=== PATIENT | female | born 1990 | race Caucasian/White ===

== ENCOUNTER 2022-03-30 04:21 | Inpatient (IN) | payer MEDICAID ==
[~2022-03-30] VITALS: Ht 152.4 cm; Wt 65.7 kg
[2022-03-30 07:26] LABS: BASOPHILS % (AUTO) 0.1 % (0-1); EOSINOPHILS % (AUTO) 0 % (0-6); HEMATOCRIT 34.4 % (35.0-45.0); HEMOGLOBIN 11.3 g/dl (12.0-16.0); LYMPHOCYTES # (AUTO) 1.4 X10'3 (1.1-4.8); LYMPHOCYTES % (AUTO) 11.9 % (21-51); MEAN CORPUSCULAR HGB CONC 32.9 g/dL (33.0-36.5); MEAN PLATELET VOLUME 7.2 FL (7.4-10.4); MONOCYTES # (AUTO) 0.5 X10'3 (0-0.9); MONOCYTES % (AUTO) 4.4 % (2-12); NEUTROPHILS # (AUTO) 9.6 X10'3 (1.8-7.7); NEUTROPHILS % (AUTO) 83.6 % (42-75); PLATELET COUNT 300 X10'3 (140-440); RED BLOOD COUNT 3.66 X10'6 (4.20-5.60); RED CELL DISTRIBUTION WIDTH 14.7 % (11.5-14.5); WHITE BLOOD COUNT 11.5 X10'3 (4.5-11.0)
[2022-03-30 07:32] LABS: ALANINE AMINOTRANSFERASE 45 U/L (12-78); ALBUMIN 3.8 G/DL (3.4-5.0); ALKALINE PHOSPHATASE 74 IU/L (46-116); ANION GAP 10 (8-16); ASPARTATE AMINO TRANSFERASE 24 U/L (10-37); BILIRUBIN,TOTAL 0.4 MG/DL (0.1-1.0); BLOOD UREA NITROGEN 13 MG/DL (7-18); BUN/CREATININE RATIO 20.3 (6.6-38.0); CALCIUM 8.8 MG/DL (8.5-10.1); CHLORIDE 100 MMOL/L (99-107); CREATININE 0.64 MG/DL (0.40-0.90); GLUCOSE 107 MG/DL (70-104); LIPASE 101 U/L (73-393); POTASSIUM 3.6 MMOL/L (3.5-5.1); SODIUM 132 MMOL/L (135-145); TOTAL CARBON DIOXIDE 21.7 MMOL/L (24-32); TOTAL PROTEIN 7.6 G/DL (6.4-8.2); eGFR > 90 ML/MIN
[2022-03-30] MEDS ORDERED: ondansetron/PF 4mg/2ml inj IV ONE (08:30)
[2022-03-30] MEDS ORDERED: normal saline 1000ML IV soln IVB ONE (08:30)
[2022-03-30] MEDS ORDERED: morphine 4 MG/ML inj SYRINge IV PRN ×2 (08:30→13:25)
--- NOTE | 2022-03-30 09:08 | NUR ---
PT GUARDIANS PREFER TO HOLD IV MORPHINE AT THIS TIME, DUE TO PT NOT APPEARING TO BE IN PAIN AT THIS MOMENT.
[2022-03-30 10:05] LABS: CLARITY,URINE CLEAR (Clear); COLOR,URINE YELLOW (Yellow); GLUCOSE, URINE NEGATIVE (Neg); KETONES,URINE NEGATIVE (Neg); LEUKOCYTE ESTERASE ,URINE NEGATIVE (Neg); NITRITES, URINE NEGATIVE (Neg); OCCULT BLOOD,URINE MODERATE (Neg); PROTEIN,URINE NEGATIVE (Neg); UROBILINOGEN,URINE 0.2 E.U/dL (0.2-1.0)
[2022-03-30 10:09] LABS: UA COLLECTION TYPE CLN CATCH MIDSTREAM
[2022-03-30 10:11] LABS: SQUAMOUS EPITHELIAL CELL,UR FEW /LPF (FEW)
[2022-03-30 10:12] LABS: BACTERIA,URINE FEW /HPF (Neg); WBC,URINE NONE SEEN /HPF (0-4)
[2022-03-30 10:24] LABS: URINE HCG NEGATIVE (NEG)
[2022-03-30] MEDS ORDERED: CefTRIAXone 2gm/D5W 50ml BAG 50 ML IV ONE (12:20)
[2022-03-30] MEDS ORDERED: HYDROcodone/acetaminophen 5mg/325mg tablet PO PRN (12:30)
[2022-03-30] MEDS ORDERED: magnesium Cl slow-release 64mg tablet PO PRN (12:30)
[2022-03-30] MEDS ORDERED: HYDROmorphone/PF 0.2 MG/ML SYRINGE IV PRN (12:30)
[2022-03-30] MEDS ORDERED: metoclopramide 5 mg/ml inj IV PRN (12:30)
[2022-03-30] MEDS ORDERED: magnesium 4gm in 100ml NS 100 ML IV PRN (12:30)
[2022-03-30] MEDS ORDERED: HYDROcodone/acetaminophen 10/325mg tab PO PRN (12:30)
[2022-03-30] MEDS ORDERED: mag hydrox/Alum hydrox/simeth 30ml oral suspension PO PRN (12:30)
[2022-03-30] MEDS ORDERED: ondansetron 4mg rapidly disintigrating tab PO PRN (12:30)
[2022-03-30] MEDS ORDERED: potassium Cl 20 mEq SR tablet PO PRN ×2 (12:30)
[2022-03-30] MEDS ORDERED: potassium Cl 40MEQ/1/2NS 520ml 520 ML IV PRN (12:30)
[2022-03-30] MEDS ORDERED: magnesium hydroxide 30ml (MOM) UD suspension PO PRN ×2 (12:30→17:40)
[2022-03-30] MEDS ORDERED: acetaminophen 325mg tablet PO PRN (12:30)
[2022-03-30] MEDS ORDERED: acetaminophen 650mg rectal suppository RC PRN (12:30)
[2022-03-30] MEDS ORDERED: HYDROmorphone inj. 0.5 MG/0.5 ML DISP.SYRIN IV PRN (12:30)
[2022-03-30] MEDS ORDERED: diatr meglu/diatrizoate 30ml oral sol.-(3 dose) bottle PO SCH ×2 (13:00)
[2022-03-30] MEDS ORDERED: CALC-157 PO (13:03)
[2022-03-30] MEDS ORDERED: POLY17PO59 PO (13:03)
[2022-03-30] MEDS ORDERED: LEVE500T PO (13:03)
[2022-03-30] MEDS ORDERED: OXCA150T14 PO (13:03)
[2022-03-30] MEDS ORDERED: CHOL400T PO (13:03)
[2022-03-30] MEDS ORDERED: OXCA600T9 PO (13:03)
[2022-03-30 13:11] LABS: MAGNESIUM 2.2 MG/DL (1.5-2.4)
[2022-03-30] MEDS: diatr meglu/diatrizoate 30ml oral sol.-(3 dose) bottle PO SCH ×3 (13:11→14:55)
[2022-03-30] MEDS ORDERED: BUPIVAcaine/PF 2.5 mg/ml (0.25%) 30ml vial ONE ×2 (13:18→14:59)
[2022-03-30] MEDS: normal saline 1000ml 1,000 ML IV SCH (13:19)
[2022-03-30] MEDS ORDERED: ketorolac trometh. 30mg/ml inj. IV ONE (13:25)
[2022-03-30] MEDS ORDERED: proCHLORperazine 10 MG/2 ml inj IV PRN (13:25)
[2022-03-30] MEDS ORDERED: ondansetron/PF 4mg/2ml inj IV PRN (13:25)
[2022-03-30] MEDS ORDERED: acetaminophen 1,000mg/100ml IV 100 ML IV PRN (13:25)
[2022-03-30] MEDS ORDERED: morphine 2 MG/ML inj. syringe IV PRN (13:25)
[2022-03-30] MEDS ORDERED: labetalol 20mg/4ml (5mg/ml) syringe IV PRN (13:25)
[2022-03-30] MEDS ORDERED: hydrALAZINE 20mg/ml inj. IV PRN (13:25)
[2022-03-30] MEDS ORDERED: meperidine/PF 25mg/ml syringe IV PRN ×2 (13:25)
[2022-03-30] MEDS ORDERED: ringers solution, lacted 1,000 ML IV SCH (13:25)
[2022-03-30] MEDS ORDERED: iohexol 300mg/ml 100ml inj. ONE (14:38)
--- NOTE | 2022-03-30 16:42 | NUR ---
MD BURROUGHS PAGED AT THIS TIME PER MOTHER AND FATHER REQEST TO BE GIVEN CT SCAN RESULTS AND PLAN OF CARE
[2022-03-30] MEDS ORDERED: bisacodyl 5mg tablet.DR PO PRN (17:40)
[2022-03-30] MEDS ORDERED: bisacodyl 10mg suppository rectal RC PRN (17:40)
[2022-03-30] MEDS ORDERED: docusate sod 100mg capsule PO SCH (20:00)
[2022-03-30] MEDS ORDERED: levetiracetam 250mg tablet PO SCH ×2 (20:00→22:15)
[2022-03-30] MEDS ORDERED: oxcarbazepine 150mg tablet PO SCH (21:00)
[2022-03-30] MEDS ORDERED: temazepam 15mg capsule PO PRN (21:00)
--- NOTE | 2022-03-31 00:10 | NUR ---
pt arrived to pcu room 3021. mother at bedside. called RX to verify if medications were given in ED. meds were not scanned and not in EMR but RX RJ states that trileptal and mirilax were removed from ED omnicell. mother verifies that those medications were given and does not want them duplicated. mother also refuses IVF "we will be up and down to the bathroom all night so I don't want that in the way" mother to stay and care for patient.
[2022-03-31] MEDS: K and/or MAG REPLACEMENT MC SCH ×3 (00:30→20:00)
[2022-03-31] MEDS: polyethylene glycol 3350 17gm powd pack PO SCH ×2 (00:44→19:55)
[2022-03-31] MEDS: normal saline 1000ml 1,000 ML IV SCH ×2 (00:44→04:05)
[2022-03-31] MEDS: psyllium seed 3.4 gm packet PO SCH ×2 (00:45→19:57)
[2022-03-31] MEDS: docusate sod 100mg capsule PO SCH ×3 (00:45→19:58)
[2022-03-31 02:45] VITALS: BP 141/79
--- NOTE | 2022-03-31 03:18 | NUR ---
mom noticed pt very sleepy. HR and O2sat dipping to 40's HR and 85%02sat. Applied oxygen 2L NC and continuous pulse ox. O2sat stable at high 90s and HR in high 40s to mid 50s. Mom at bedside monitoring O2 sat will notify RN if symptoms persist or worsen.
--- NOTE | 2022-03-31 03:22 | NUR ---
agree with assess by student Henny
[2022-03-31 06:00] VITALS: BP 141/85
--- NOTE | 2022-03-31 06:21 | NUR ---
Gave report to AMOS Humphreys. noted pt had a bowel movement and pt O2 sat decreases with any narcotics. mother at bedside
[2022-03-31 06:39] LABS: BASOPHILS % (AUTO) 0.4 % (0-1); EOSINOPHILS % (AUTO) 0.1 % (0-6); HEMATOCRIT 29.4 % (35.0-45.0); HEMOGLOBIN 9.9 g/dl (12.0-16.0); LYMPHOCYTES # (AUTO) 2.5 X10'3 (1.1-4.8); LYMPHOCYTES % (AUTO) 24.4 % (21-51); MEAN CORPUSCULAR HEMOGLOBIN 32.2 PG (27.0-31.0); MEAN CORPUSCULAR HGB CONC 33.8 g/dL (33.0-36.5); MEAN CORPUSCULAR VOLUME 95.3 FL (78-98); MEAN PLATELET VOLUME 6.8 FL (7.4-10.4); MONOCYTES # (AUTO) 0.9 X10'3 (0-0.9); MONOCYTES % (AUTO) 8.5 % (2-12); NEUTROPHILS # (AUTO) 6.8 X10'3 (1.8-7.7); NEUTROPHILS % (AUTO) 66.6 % (42-75); PLATELET COUNT 238 X10'3 (140-440); RED BLOOD COUNT 3.09 X10'6 (4.20-5.60); RED CELL DISTRIBUTION WIDTH 14.9 % (11.5-14.5); WHITE BLOOD COUNT 10.3 X10'3 (4.5-11.0)
--- NOTE | 2022-03-31 06:42 | NUR ---
Patient in room PCU 3021. I have received report from Herbie TRINIDAD and had the opportunity to ask questions and assume patient care.Pt sleeping, Mom at bedside. Addendum: 03/31/22 at 0643 by Joelle Austin RN Amended: Links added.
[2022-03-31 07:06] LABS: ANION GAP 9 (8-16); BILIRUBIN,TOTAL 0.4 MG/DL (0.1-1.0); BLOOD UREA NITROGEN 11 MG/DL (7-18); BUN/CREATININE RATIO 14.7 (6.6-38.0); CALCIUM 8.1 MG/DL (8.5-10.1); CHLORIDE 102 MMOL/L (99-107); CREATININE 0.75 MG/DL (0.40-0.90); GLUCOSE 89 MG/DL (70-104); MAGNESIUM 2.3 MG/DL (1.5-2.4); POTASSIUM 3.6 MMOL/L (3.5-5.1); SODIUM 134 MMOL/L (135-145); TOTAL PROTEIN 6.3 G/DL (6.4-8.2); eGFR > 90 ML/MIN
[2022-03-31 07:07] LABS: ALANINE AMINOTRANSFERASE 67 U/L (12-78); ALBUMIN 3.2 G/DL (3.4-5.0); ALKALINE PHOSPHATASE 62 IU/L (46-116); ASPARTATE AMINO TRANSFERASE 43 U/L (10-37)
[2022-03-31] MEDS ORDERED: CefTRIAXone/D5W-Rocephin 1gm 50 ML IV SCH (08:00)
[2022-03-31] MEDS ORDERED: levetiracetam 250mg tablet PO SCH (08:00)
[2022-03-31] MEDS ORDERED: POLYETHYLENE GLYCOL PO SCH (08:00)
--- NOTE | 2022-03-31 08:07 | NUR ---
MESSAGE: 3021 mily. She takes Keppra 1000mg BID. She only has 500mg ordered for the a.m. , Trileptal 450mg in the a.m and 600mg in the p.m. I need an order for keppra 1000mg in the a.m. and trileptal 600 mg in the p.m. [facility]
[2022-03-31] MEDS: levetiracetam 250mg tablet PO SCH ×2 (09:13→21:55)
[2022-03-31] MEDS: oxcarbazepine 150mg tablet PO SCH ×2 (09:14→21:56)
[2022-03-31 11:45] VITALS: BP 144/102
[2022-03-31] MEDS ORDERED: mineral oil 133ml enema RC PRN (13:55)
--- NOTE | 2022-03-31 14:31 | NUR ---
enema given. pt tolerated well. No stool in vault. await results. Dad at bedside. Patient report given, questions answered & plan of care reviewed with Beba TRINIDAD. Will transfer Pt after Pt expels enema solution or is no longer uncomfortable.
--- NOTE | 2022-03-31 14:52 | NUR ---
pt and all belongings moved to room 341. Mom at bedside. Dr Omer updated on Pt lack of stool.
--- NOTE | 2022-03-31 15:03 | NUR ---
Received patient to room 341 accompanied by x2 staff and mother. Patient's mother refuses for 2rn skin assessment and states patient does not have any skin issues. Patient up to bathroom with SBA with mother. Call light within reach, oriented to room and call light.
[2022-03-31 16:00] VITALS: BP 178/104
--- NOTE | 2022-03-31 16:39 | NUR ---
Per patient's mother patient is not allergic to [place] or morphine but "it's too strong" as per report patient's heart rate and spo2% decreased after taking norco and morphine.
--- NOTE | 2022-03-31 16:39 | NUR ---
PAGER ID: [phone] MESSAGE: [phone]- Ninoska Mayer- pt moaning in pain. does have norco and morphine ordered but too strong per mother. any new orders?- jennifer [phone]
--- NOTE | 2022-03-31 16:54 | NUR ---
PAGER ID: [phone] MESSAGE: 341- Ninoska Mayer- pt very uncomfortable and painful. mother is upset. patient needing pain meds but norco and morphine too strong. any new orders?- jennifer [phone]
[2022-03-31] MEDS ORDERED: ibuprofen tablet 400 MG TABLET PO PRN (17:10)
--- NOTE | 2022-03-31 17:17 | NUR ---
Received call back from Dr. Cazares and stated he will place pain med order in and is aware that patient's BP and HR elevated. Patient moaning and groaning. Let mother know will administer medication when order in.
[2022-03-31 17:20] VITALS: BP 171/115
[2022-03-31] MEDS: HYDROcodone/acetaminophen 7.5MG/325MG per 15ml UD CUP PO PRN ×2 (17:44→21:55)
[2022-03-31] MEDS ORDERED: oxcarbazepine 150mg tablet PO SCH ×2 (18:13→21:00)
--- NOTE | 2022-03-31 18:15 | NUR ---
Problems reprioritized. Patient report given, questions answered & plan of care reviewed with AMOS Stoner.
[2022-03-31] MEDS: famotidine 20mg tablet PO SCH (19:59)
[2022-03-31] MEDS: acetaminophen 325mg tablet PO PRN (20:09)
--- NOTE | 2022-03-31 20:12 | NUR ---
paged Dr. Ryan rejhonqesting toradol in addition to the norco. pt continues to be painful and norco not due for another 2 hours. family concerned about pain control.
[2022-03-31] MEDS ORDERED: ketorolac trometh. 30mg/ml inj. IV ONE (20:15)
--- NOTE | 2022-03-31 22:00 | NUR ---
Dr. Ryan ordered soaps suds enema, family agreeable at the time but then pt had increased pain and they refused at this time. Will try again in AM.
--- NOTE | 2022-03-31 22:00 | NUR ---
agree with assessment of Henny, student RN
[2022-03-31 23:05] VITALS: BP 152/98
[2022-04-01] MEDS: HYDROcodone/acetaminophen 7.5MG/325MG per 15ml UD CUP PO PRN ×6 (01:53→20:30)
[2022-04-01] MEDS: normal saline 1000ml 1,000 ML IV SCH ×2 (02:40→09:47)
--- NOTE | 2022-04-01 05:45 | NUR ---
educated mom again on necessity of walking. mom is a horse person - "walk the horse that has cholic" and needs to walk with barber. "But she won't she's in so much pain and makes a lot of noise. I'm afraid for the other patients." encouraged that pt could walk around unit next door while pushing a w/c. then she can sit when needed and keep the heat pack on while sitting. mom verbalized understanding.
[2022-04-01 06:00] VITALS: BP 158/91
--- NOTE | 2022-04-01 06:12 | NUR ---
Report given to RN Bouchra. Noted patient passed mucus but no stool and pain medication given. Noted when patient receives narcotics O2 sat and HR drops. Recommend the patient walk. Patient may benefit from further imaging.
--- NOTE | 2022-04-01 06:20 | NUR ---
Patient in room DELMA 351. I have received report from AMOS Camara and had the opportunity to ask questions and assume patient care.
[2022-04-01 07:01] LABS: BASOPHILS % (AUTO) 0.3 % (0-1); EOSINOPHILS % (AUTO) 0.1 % (0-6); HEMATOCRIT 31.5 % (35.0-45.0); HEMOGLOBIN 10.6 g/dl (12.0-16.0); LYMPHOCYTES # (AUTO) 1.7 X10'3 (1.1-4.8); LYMPHOCYTES % (AUTO) 17.9 % (21-51); MEAN CORPUSCULAR HGB CONC 33.7 g/dL (33.0-36.5); MEAN PLATELET VOLUME 6.7 FL (7.4-10.4); MONOCYTES # (AUTO) 0.6 X10'3 (0-0.9); MONOCYTES % (AUTO) 5.9 % (2-12); NEUTROPHILS # (AUTO) 7.3 X10'3 (1.8-7.7); NEUTROPHILS % (AUTO) 75.8 % (42-75); PLATELET COUNT 258 X10'3 (140-440); RED BLOOD COUNT 3.31 X10'6 (4.20-5.60); RED CELL DISTRIBUTION WIDTH 14.7 % (11.5-14.5); WHITE BLOOD COUNT 9.7 X10'3 (4.5-11.0)
[2022-04-01 07:25] LABS: ALANINE AMINOTRANSFERASE 92 U/L (12-78); ALBUMIN 3.5 G/DL (3.4-5.0); ALKALINE PHOSPHATASE 75 IU/L (46-116); ANION GAP 10 (8-16); ASPARTATE AMINO TRANSFERASE 62 U/L (10-37); BILIRUBIN,TOTAL 0.5 MG/DL (0.1-1.0); BLOOD UREA NITROGEN 8 MG/DL (7-18); BUN/CREATININE RATIO 14.5 (6.6-38.0); CALCIUM 8.1 MG/DL (8.5-10.1); CHLORIDE 97 MMOL/L (99-107); CREATININE 0.55 MG/DL (0.40-0.90); GLUCOSE 123 MG/DL (70-104); MAGNESIUM 2.5 MG/DL (1.5-2.4); POTASSIUM 3.7 MMOL/L (3.5-5.1); SODIUM 128 MMOL/L (135-145); TOTAL CARBON DIOXIDE 20.7 MMOL/L (24-32); eGFR > 90 ML/MIN
[2022-04-01] MEDS: K and/or MAG REPLACEMENT MC SCH ×2 (07:47→20:00)
[2022-04-01] MEDS: famotidine 20mg tablet PO SCH ×2 (08:00→20:31)
[2022-04-01] MEDS ORDERED: lactulose 20gm/30ml cup PO ONE (08:44)
--- NOTE | 2022-04-01 09:15 | NUR ---
Complete physical assessment completed
[2022-04-01] MEDS: acetaminophen 325mg tablet PO PRN (09:22)
[2022-04-01] MEDS: docusate sod 100mg capsule PO SCH ×2 (09:22→20:00)
[2022-04-01] MEDS: levetiracetam 250mg tablet PO SCH ×2 (09:22→20:35)
[2022-04-01] MEDS: oxcarbazepine 150mg tablet PO SCH ×2 (09:23→20:34)
[2022-04-01 10:00] VITALS: BP 144/94
[2022-04-01] MEDS: ondansetron/PF 4mg/2ml inj IV PRN (11:04)
[2022-04-01 18:00] VITALS: BP 149/90
[2022-04-01] MEDS: PEG 3350/Na sulf,bicarb,Cl/KCl oral sol 4 liter bottle PO ONE (18:10)
--- NOTE | 2022-04-01 18:40 | NUR ---
Problems reprioritized. Patient report given, questions answered & plan of care reviewed with AMOS Laws.
--- NOTE | 2022-04-01 19:00 | NUR ---
Father in room at this time and wanting to check on time of pain meds. All medication times and doses gone over with father. He and his had discussed holding off on the GOYLTELY until tomorrow. It was explained that it can just be sipped on she does not have to drink all of it at once. He and concerned pt had vomited today, and right now she is finally comfortable. Education on the importance of walking and keeping adequate fluid intake. Pt sitting in recliner at this time appearing comfortable with eyes closed, no grimacing or moaning.
[2022-04-01] MEDS: polyethylene glycol 3350 17gm powd pack PO SCH (21:00)
--- NOTE | 2022-04-01 21:00 | NUR ---
Father would like to hold off on Miralax at this time.
[2022-04-01 22:00] VITALS: BP 158/95
[2022-04-02] MEDS: HYDROcodone/acetaminophen 7.5MG/325MG per 15ml UD CUP PO PRN ×4 (00:11→13:31)
--- NOTE | 2022-04-02 01:00 | NUR ---
Father came out of room upset. Stating there's nothing being done, we are just killing his daughter "come sit in here and watch her". When nurse entered room pt was in recliner, sleeping as pain medication was given and pt now appears comfortable. Respirations 18 with occasional nodding of her head to the pillow. The father was allowed to vent his frustrations, while nurse sat in room with him and his sleeping daughter. He did acknowledge how more comfortable she looked as he adjusted the head of her recliner down. Addendum: 04/02/22 at 0208 by Eusebia Holden RN Amended: Links added.
[2022-04-02] MEDS: normal saline 1000ml 1,000 ML IV SCH (02:16)
--- NOTE | 2022-04-02 02:31 | NUR ---
Mother Brooke is now taking over care, as Father Victoriano is going home. Mother still is not wanting daughter to take Golytely. Mother frustrated with plan of care, which was allowed to be expressed.
[2022-04-02] MEDS: PEG 3350/Na sulf,bicarb,Cl/KCl oral sol 4 liter bottle PO ONE (04:38)
--- NOTE | 2022-04-02 04:49 | NUR ---
Talked to Mother about GOLYTEY and that it was suggested by Dr. Dodd as per his progress note. Mother is willing to try it. GOLYTELY mixed and flavoring provided, at mothers discretion.
[2022-04-02 06:00] VITALS: BP 149/108
--- NOTE | 2022-04-02 06:40 | NUR ---
Patient in room DELMA 351. I have received report from AMOS Laws and had the opportunity to ask questions and assume patient care.
[2022-04-02 06:41] LABS: BASOPHILS % (AUTO) 0.3 % (0-1); EOSINOPHILS # (AUTO) 0.1 X10'3 (0-0.9); EOSINOPHILS % (AUTO) 0.6 % (0-6); HEMATOCRIT 32.4 % (35.0-45.0); HEMOGLOBIN 11.1 g/dl (12.0-16.0); LYMPHOCYTES # (AUTO) 2.7 X10'3 (1.1-4.8); LYMPHOCYTES % (AUTO) 28.1 % (21-51); MEAN CORPUSCULAR HEMOGLOBIN 32.7 PG (27.0-31.0); MEAN CORPUSCULAR HGB CONC 34.1 g/dL (33.0-36.5); MEAN CORPUSCULAR VOLUME 95.9 FL (78-98); MEAN PLATELET VOLUME 7.3 FL (7.4-10.4); MONOCYTES # (AUTO) 0.8 X10'3 (0-0.9); MONOCYTES % (AUTO) 8.5 % (2-12); NEUTROPHILS % (AUTO) 62.5 % (42-75); PLATELET COUNT 253 X10'3 (140-440); RED BLOOD COUNT 3.38 X10'6 (4.20-5.60); RED CELL DISTRIBUTION WIDTH 15.1 % (11.5-14.5); WHITE BLOOD COUNT 9.7 X10'3 (4.5-11.0)
--- NOTE | 2022-04-02 06:48 | NUR ---
Problems reprioritized. Patient report given, questions answered & plan of care reviewed with Bouchra TRINIDAD. Addendum: 04/02/22 at 0650 by Eusebia Holden RN Amended: Links added.
[2022-04-02 06:56] LABS: ALANINE AMINOTRANSFERASE 379 U/L (12-78); ALBUMIN 3.4 G/DL (3.4-5.0); ALKALINE PHOSPHATASE 76 IU/L (46-116); ANION GAP 7 (8-16); ASPARTATE AMINO TRANSFERASE 268 U/L (10-37); BILIRUBIN,TOTAL 0.5 MG/DL (0.1-1.0); BLOOD UREA NITROGEN 9 MG/DL (7-18); BUN/CREATININE RATIO 12.9 (6.6-38.0); CALCIUM 7.9 MG/DL (8.5-10.1); CHLORIDE 97 MMOL/L (99-107); GLUCOSE 87 MG/DL (70-104); MAGNESIUM 2.1 MG/DL (1.5-2.4); POTASSIUM 3.8 MMOL/L (3.5-5.1); SODIUM 127 MMOL/L (135-145); TOTAL CARBON DIOXIDE 22.8 MMOL/L (24-32); TOTAL PROTEIN 6.9 G/DL (6.4-8.2); eGFR > 90 ML/MIN
[2022-04-02] MEDS: K and/or MAG REPLACEMENT MC SCH ×2 (07:42→20:00)
[2022-04-02] MEDS: levetiracetam 250mg tablet PO SCH ×2 (09:58→19:54)
[2022-04-02] MEDS: famotidine 20mg tablet PO SCH ×2 (09:58→19:50)
[2022-04-02] MEDS: docusate sod 100mg capsule PO SCH ×2 (09:59→19:53)
[2022-04-02 10:00] VITALS: BP 142/95
[2022-04-02] MEDS: oxcarbazepine 150mg tablet PO SCH ×2 (10:00→19:54)
[2022-04-02] MEDS ORDERED: diatr meglu/diatrizoate 30ml oral sol.-(3 dose) bottle ONE (12:57)
[2022-04-02] MEDS ORDERED: iohexol 300mg/ml 100ml inj. ONE (12:57)
[2022-04-02] MEDS ORDERED: dicyclomine 10mg/ml 2ml ampule IM ONE (15:25)
[2022-04-02] MEDS ORDERED: PERFLUTREN PROTEIN-A MICROSPHR (Optison) 0.22 MG/ML 3ML VIAL IV ONE (15:55)
[2022-04-02] MEDS: oxyCODONE IR 5mg (immed. release) tablet PO PRN ×2 (15:55→19:53)
[2022-04-02] MEDS: furosemide 20 MG/2 ML vial IV SCH (17:28)
[2022-04-02] MEDS: CefTRIAXone/D5W-Rocephin 1gm 50 ML IV SCH (17:31)
[2022-04-02 18:00] VITALS: BP 142/91
[2022-04-02] MEDS: ketorolac trometh. 30mg/ml inj. IV PRN (18:07)
[2022-04-02] MEDS: azithromycin/NS 500mg/250ml 250 ML IV SCH (18:09)
--- NOTE | 2022-04-02 18:30 | NUR ---
Problems reprioritized. Patient report given, questions answered & plan of care reviewed with AMOS Laws.
[2022-04-02] MEDS: metoclopramide 5 mg/ml inj IV SCH (19:50)
[2022-04-03] MEDS: metoclopramide 5 mg/ml inj IV SCH ×4 (02:15→23:04)
[2022-04-03] MEDS: ketorolac trometh. 30mg/ml inj. IV PRN ×3 (02:15→14:21)
--- NOTE | 2022-04-03 03:00 | NUR ---
Pt appearing to be in less discomfort this shift, Father and Mother have expressed the same. Addendum: 04/03/22 at 0317 by Eusebia Holden RN Amended: Links added.
--- NOTE | 2022-04-03 03:09 | NUR ---
Father concerned that pt is getting up to the bathroom more frequently since Reglan and Toradol were given. Pt is frequenting the bathroom more often and voice to the father about pooping. Will continue to encourage questions. Addendum: 04/03/22 at 0317 by Eusebia Holden RN Amended: Links added.
--- NOTE | 2022-04-03 06:00 | NUR ---
VS check refused
--- NOTE | 2022-04-03 06:20 | NUR ---
Patient in room DELMA 351. I have received report from AMOS Laws and had the opportunity to ask questions and assume patient care.
--- NOTE | 2022-04-03 06:20 | NUR ---
Problems reprioritized. Patient report given, questions answered & plan of care reviewed with AMOS Tran.
--- NOTE | 2022-04-03 06:32 | NUR ---
Problems reprioritized. Patient report given, questions answered & plan of care reviewed with Bouchra TRINIDAD. Addendum: 04/03/22 at 0632 by Eusebia Holden RN Amended: Links added.
[2022-04-03] MEDS: oxyCODONE IR 5mg (immed. release) tablet PO PRN (07:50)
[2022-04-03] MEDS: CefTRIAXone/D5W-Rocephin 1gm 50 ML IV SCH (08:00)
[2022-04-03] MEDS: levetiracetam 250mg tablet PO SCH ×3 (08:00→22:47)
[2022-04-03] MEDS: famotidine 20mg tablet PO SCH ×2 (08:00→22:46)
[2022-04-03] MEDS: oxcarbazepine 150mg tablet PO SCH ×3 (08:00→22:48)
[2022-04-03] MEDS: furosemide 20 MG/2 ML vial IV SCH ×2 (08:00→22:49)
[2022-04-03] MEDS: docusate sod 100mg capsule PO SCH ×2 (08:00→20:00)
[2022-04-03 09:23] LABS: BASOPHILS % (AUTO) 0.3 % (0-1); EOSINOPHILS # (AUTO) 0.1 X10'3 (0-0.9); EOSINOPHILS % (AUTO) 1.1 % (0-6); HEMATOCRIT 31.6 % (35.0-45.0); HEMOGLOBIN 10.6 g/dl (12.0-16.0); LYMPHOCYTES # (AUTO) 2.7 X10'3 (1.1-4.8); MEAN CORPUSCULAR HEMOGLOBIN 32.2 PG (27.0-31.0); MEAN CORPUSCULAR HGB CONC 33.5 g/dL (33.0-36.5); MEAN CORPUSCULAR VOLUME 95.9 FL (78-98); MEAN PLATELET VOLUME 7.2 FL (7.4-10.4); MONOCYTES # (AUTO) 0.9 X10'3 (0-0.9); MONOCYTES % (AUTO) 8.2 % (2-12); NEUTROPHILS % (AUTO) 65.4 % (42-75); PLATELET COUNT 244 X10'3 (140-440); RED CELL DISTRIBUTION WIDTH 14.7 % (11.5-14.5); WHITE BLOOD COUNT 10.7 X10'3 (4.5-11.0)
[2022-04-03 09:33] LABS: ALANINE AMINOTRANSFERASE 315 U/L (12-78); ALBUMIN 3.5 G/DL (3.4-5.0); ALBUMIN/GLOBULIN RATIO 1.1 (1.1-1.5); ALKALINE PHOSPHATASE 79 IU/L (46-116); ANION GAP 7 (8-16); ASPARTATE AMINO TRANSFERASE 169 U/L (10-37); BILIRUBIN,TOTAL 0.4 MG/DL (0.1-1.0); BLOOD UREA NITROGEN 8 MG/DL (7-18); BUN/CREATININE RATIO 10.3 (6.6-38.0); CALCIUM 8.1 MG/DL (8.5-10.1); CHLORIDE 100 MMOL/L (99-107); CREATININE 0.78 MG/DL (0.40-0.90); GLUCOSE 83 MG/DL (70-104); MAGNESIUM 2.5 MG/DL (1.5-2.4); POTASSIUM 3.2 MMOL/L (3.5-5.1); SODIUM 136 MMOL/L (135-145); TOTAL CARBON DIOXIDE 29.3 MMOL/L (24-32); TOTAL PROTEIN 6.8 G/DL (6.4-8.2); eGFR 87 ML/MIN
[2022-04-03] MEDS: ondansetron/PF 4mg/2ml inj IV PRN (09:37)
[2022-04-03] MEDS: K and/or MAG REPLACEMENT MC SCH ×2 (09:48→20:00)
[2022-04-03] MEDS: azithromycin/NS 500mg/250ml 250 ML IV SCH (09:48)
[2022-04-03 10:00] VITALS: BP 140/86
[2022-04-03] MEDS ORDERED: magnesium 4gm in 100ml NS 100 ML IV PRN (10:00)
[2022-04-03] MEDS ORDERED: magnesium Cl slow-release 64mg tablet PO PRN (10:00)
[2022-04-03] MEDS ORDERED: potassium Cl 40MEQ/1/2NS 520ml 520 ML IV PRN (10:00)
[2022-04-03] MEDS ORDERED: potassium Cl 20 mEq SR tablet PO PRN (10:00)
[2022-04-03] MEDS ORDERED: magnesium 2GM in 50ml NS 50 ML IV PRN (10:00)
[2022-04-03] MEDS: potassium Cl 20 mEq SR tablet PO PRN ×3 (10:15→23:08)
[2022-04-03] MEDS ORDERED: lisinopril 2.5mg tablet PO SCH (14:00)
[2022-04-03] MEDS ORDERED: furosemide 40mg/4ml inj IV ONE (14:20)
[2022-04-03] MEDS: carVEDilol 3.125mg tablet PO SCH ×2 (14:22→22:46)
[2022-04-03] MEDS: spironolactone 25 MG tablet PO SCH (14:22)
[2022-04-03 18:00] VITALS: BP 129/69
[2022-04-03 18:08] LABS: MAGNESIUM 2.2 MG/DL (1.5-2.4); POTASSIUM 3.4 MMOL/L (3.5-5.1)
[2022-04-03] MEDS ORDERED: LORazepam 2 mg/ml vial IV PRN (18:40)
--- NOTE | 2022-04-03 19:15 | NUR ---
Patient in room DELMA 351. I have received report from QUE TRINIDAD and had the opportunity to ask questions and assume patient care.
[2022-04-03] MEDS ORDERED: furosemide 20 MG/2 ML vial IV SCH (21:00)
[2022-04-03 22:00] VITALS: BP 131/56
[2022-04-03] MEDS: ketorolac tromethamine 15mg/ml inj. IV PRN (22:48)
--- NOTE | 2022-04-03 23:57 | NUR ---
RT WAS HERE TO PLACE BIPAP ON PATIENT AROUND 2229. PATIENT'S DAD ASKED TO WAIT ON IT UNTIL HIS COULD BE HERE ALSO SO WILL WAIT TO INITIATE BIPAP UNTIL TOMORROW NIGHT. SPOKE WITH NILSA LAZO, WHO ALSO MADE NOTE OF THIS REQUEST FROM THE DAD.
[2022-04-04] VITALS (11 sets, daily range): BP systolic 62–141; BP diastolic 37–95
--- NOTE | 2022-04-04 02:06 | NUR ---
0200 DOSE REGLAN NOT GIVEN, HAS ONLY BEEN 3 HRS SINCE LAST DOSE HS MEDS WERE GIVEN LATE PER FATHER'S REQUEST TO ALLOW PATIENT TO SLEEP.
--- NOTE | 2022-04-04 06:30 | NUR ---
Problems reprioritized. Patient report given, questions answered & plan of care reviewed with MALLORIE TRINIDAD.
[2022-04-04 06:41] LABS: BASOPHILS % (AUTO) 0.3 % (0-1); EOSINOPHILS # (AUTO) 0.1 X10'3 (0-0.9); HEMOGLOBIN 9.9 g/dl (12.0-16.0); LYMPHOCYTES % (AUTO) 20.7 % (21-51); MEAN CORPUSCULAR HEMOGLOBIN 32.6 PG (27.0-31.0); MEAN CORPUSCULAR HGB CONC 34.1 g/dL (33.0-36.5); MEAN CORPUSCULAR VOLUME 95.5 FL (78-98); MEAN PLATELET VOLUME 7.6 FL (7.4-10.4); MONOCYTES # (AUTO) 0.9 X10'3 (0-0.9); MONOCYTES % (AUTO) 9.1 % (2-12); NEUTROPHILS # (AUTO) 6.7 X10'3 (1.8-7.7); NEUTROPHILS % (AUTO) 68.9 % (42-75); PLATELET COUNT 222 X10'3 (140-440); RED BLOOD COUNT 3.03 X10'6 (4.20-5.60); RED CELL DISTRIBUTION WIDTH 15.4 % (11.5-14.5); WHITE BLOOD COUNT 9.7 X10'3 (4.5-11.0)
[2022-04-04 07:02] LABS: ALANINE AMINOTRANSFERASE 333 U/L (12-78); ALBUMIN 3.3 G/DL (3.4-5.0); ALKALINE PHOSPHATASE 112 IU/L (46-116); ANION GAP 5 (8-16); ASPARTATE AMINO TRANSFERASE 154 U/L (10-37); BILIRUBIN,TOTAL 0.3 MG/DL (0.1-1.0); BLOOD UREA NITROGEN 12 MG/DL (7-18); BUN/CREATININE RATIO 16.4 (6.6-38.0); CALCIUM 7.8 MG/DL (8.5-10.1); CHLORIDE 99 MMOL/L (99-107); CREATININE 0.73 MG/DL (0.40-0.90); GLUCOSE 96 MG/DL (70-104); MAGNESIUM 2.7 MG/DL (1.5-2.4); POTASSIUM 3.6 MMOL/L (3.5-5.1); SODIUM 131 MMOL/L (135-145); TOTAL CARBON DIOXIDE 27.4 MMOL/L (24-32); TOTAL PROTEIN 6.6 G/DL (6.4-8.2); eGFR > 90 ML/MIN
[2022-04-04] MEDS: K and/or MAG REPLACEMENT MC SCH ×2 (08:00→20:00)
[2022-04-04] MEDS: ketorolac tromethamine 15mg/ml inj. IV PRN (09:27)
[2022-04-04] MEDS: furosemide 20 MG/2 ML vial IV SCH ×2 (09:37→20:02)
[2022-04-04] MEDS: metoclopramide 5 mg/ml inj IV SCH ×3 (09:47→20:04)
[2022-04-04] MEDS: ondansetron/PF 4mg/2ml inj IV PRN (09:51)
[2022-04-04] MEDS: CefTRIAXone/D5W-Rocephin 1gm 50 ML IV SCH (09:53)
[2022-04-04] MEDS: oxyCODONE IR 5mg (immed. release) tablet PO PRN (09:55)
[2022-04-04] MEDS: levetiracetam 250mg tablet PO SCH ×2 (10:12→20:08)
[2022-04-04] MEDS: oxcarbazepine 150mg tablet PO SCH ×2 (10:16→20:09)
--- NOTE | 2022-04-04 11:02 | NUR ---
RT AT PATIENTS BEDSIDE TO EVALUATE PATIENT FOR BIPAP/CPAP PRN. PATIENT CURRENTLY ASLEEP, SHOWING NO SIGNS OF SOB/DISTRESS. LET PATIENTS MOTHER KNOW THAT RT WILL RETURN THIS AFTERNOON. Addendum: 04/04/22 at 1104 by Deena Warren RT Amended: Links added.
--- NOTE | 2022-04-04 11:08 | NUR ---
Initial: Pt admitted w/ PNA, constipation, bilateral pleural effusions, and CHF per EMR. Currently on Regular diet w/mostly 0-25% intake not meeting needs. Pt's mother at bedside who is requesting prune juice TID as pt has not had a BM yet. The mother states that pt usually eats well and is not a picky eater and feels that the constipation is the main issue w/ her PO intake. Discussed w/ dietary to send prune juice TID w/ meals. Pt's mother declined any further interventions at this time. Will continue to monitor. Recs; 1. Continue Regular diet as tolerated 2. Prune Juice TID 3. Routine bowel care 4. Weekly wts Addendum: 04/04/22 at [address] Amended: Links added.
[2022-04-04] MEDS: carVEDilol 3.125mg tablet PO SCH (12:33)
[2022-04-04] MEDS: famotidine 20mg tablet PO SCH ×2 (12:34→20:07)
[2022-04-04] MEDS: spironolactone 25 MG tablet PO SCH (12:35)
[2022-04-04] MEDS: lisinopril 10 MG tablet PO SCH (12:58)
[2022-04-04] MEDS: docusate sod 100mg capsule PO SCH ×2 (12:58→20:07)
[2022-04-04] MEDS: azithromycin/NS 500mg/250ml 250 ML IV SCH (14:41)
--- NOTE | 2022-04-04 15:40 | NUR ---
Dad came to nurse station yelling she passed out I need help. I told you something was wrong, now you can see I was right. Upon entering room, patient was sitting in recliner chair, lips pale, diaphoretic & unresponsive. Rapid response called, patient transferred into bed & put in trendelenberg. NS fluid bolus initiated, ROTOR WINDER, RT, Dr Vilchis responded to pt room. Oxygen 2L nc. Prior to transfer to ICU patient was awake, not alert. Responded verbally when spoken to. Not at her baseline.
--- NOTE | 2022-04-04 15:50 | NUR ---
250cc NS ivf bolus
--- NOTE | 2022-04-04 16:07 | NUR ---
bedside EKG done
[2022-04-04] MEDS ORDERED: DOBUTamine-DoBUTrex 500mg/D5W 250 ML IV SCH (16:13)
--- NOTE | 2022-04-04 16:33 | NUR ---
Patient to room 2012 from surgical post rapid response, heart rate in high 60s, BP 98/62, oxygen saturation 94% on 4L NC
[2022-04-04 16:48] LABS: BASOPHILS % (AUTO) 0.3 % (0-1); EOSINOPHILS % (AUTO) 0.1 % (0-6); HEMATOCRIT 29.2 % (35.0-45.0); HEMOGLOBIN 9.9 g/dl (12.0-16.0); LYMPHOCYTES # (AUTO) 1.2 X10'3 (1.1-4.8); LYMPHOCYTES % (AUTO) 12.2 % (21-51); MEAN CORPUSCULAR HEMOGLOBIN 32.2 PG (27.0-31.0); MEAN CORPUSCULAR HGB CONC 33.9 g/dL (33.0-36.5); MEAN CORPUSCULAR VOLUME 95.1 FL (78-98); MEAN PLATELET VOLUME 7.3 FL (7.4-10.4); MONOCYTES # (AUTO) 0.5 X10'3 (0-0.9); MONOCYTES % (AUTO) 4.7 % (2-12); NEUTROPHILS # (AUTO) 8.3 X10'3 (1.8-7.7); NEUTROPHILS % (AUTO) 82.7 % (42-75); PLATELET COUNT 225 X10'3 (140-440); RED BLOOD COUNT 3.07 X10'6 (4.20-5.60); RED CELL DISTRIBUTION WIDTH 15.3 % (11.5-14.5); WHITE BLOOD COUNT 10.1 X10'3 (4.5-11.0)
[2022-04-04 17:01] LABS: ALANINE AMINOTRANSFERASE 408 U/L (12-78); ALBUMIN 3.2 G/DL (3.4-5.0); ALBUMIN/GLOBULIN RATIO 0.9 (1.1-1.5); ALKALINE PHOSPHATASE 113 IU/L (46-116); ANION GAP 6 (8-16); ASPARTATE AMINO TRANSFERASE 174 U/L (10-37); BILIRUBIN,TOTAL 0.3 MG/DL (0.1-1.0); BLOOD UREA NITROGEN 13 MG/DL (7-18); BUN/CREATININE RATIO 12.6 (6.6-38.0); CALCIUM 7.6 MG/DL (8.5-10.1); CHLORIDE 99 MMOL/L (99-107); CREATININE 1.03 MG/DL (0.40-0.90); GLUCOSE 143 MG/DL (70-104); POTASSIUM 4.6 MMOL/L (3.5-5.1); SODIUM 133 MMOL/L (135-145); TOTAL CARBON DIOXIDE 27.7 MMOL/L (24-32); TOTAL PROTEIN 6.7 G/DL (6.4-8.2); eGFR 63 ML/MIN
[2022-04-04 17:06] LABS: MAGNESIUM 2.4 MG/DL (1.5-2.4); PHOSPHORUS 4.3 MG/DL (2.3-4.5)
--- NOTE | 2022-04-04 18:13 | NUR ---
Problems reprioritized. Patient report given, questions answered & plan of care reviewed with AMOS Packer.
--- NOTE | 2022-04-04 18:15 | NUR ---
Patient in room CICU 2013. I have received report from AMOS Jernigan and had the opportunity to ask questions and assume patient care. Patient is sleeping comfortably, family at bedside.
--- NOTE | 2022-04-04 18:30 | NUR ---
Per Dr. Susan Estrada stop Coreg, but give Lasix and Lisinopril
--- NOTE | 2022-04-04 19:00 | NUR ---
Patient face looks a little swollen, parents agree this is not normal. No swelling of tongue or lips, will notify Dr. Susan Estrada as she has started on Lisinopril today.
--- NOTE | 2022-04-04 20:30 | NUR ---
Dr. Amita Estrada cld back, advised me to continue to monitor facial swelling. No new orders as long as she is swallowing normally and the swelling is not getting worse.
[2022-04-04 21:56] LABS: BASOPHILS % (AUTO) 0.3 % (0-1); EOSINOPHILS % (AUTO) 0 % (0-6); HEMATOCRIT 32.3 % (35.0-45.0); HEMOGLOBIN 10.7 g/dl (12.0-16.0); LYMPHOCYTES # (AUTO) 1.4 X10'3 (1.1-4.8); LYMPHOCYTES % (AUTO) 13.5 % (21-51); MEAN CORPUSCULAR HEMOGLOBIN 31.7 PG (27.0-31.0); MEAN PLATELET VOLUME 7.6 FL (7.4-10.4); MONOCYTES # (AUTO) 0.4 X10'3 (0-0.9); MONOCYTES % (AUTO) 4.1 % (2-12); NEUTROPHILS # (AUTO) 8.4 X10'3 (1.8-7.7); NEUTROPHILS % (AUTO) 82.1 % (42-75); PLATELET COUNT 259 X10'3 (140-440); RED BLOOD COUNT 3.36 X10'6 (4.20-5.60); RED CELL DISTRIBUTION WIDTH 15.3 % (11.5-14.5); WHITE BLOOD COUNT 10.2 X10'3 (4.5-11.0)
[2022-04-05] VITALS (19 sets, daily range): BP systolic 92–148; BP diastolic 52–98
[2022-04-05] MEDS: metoclopramide 5 mg/ml inj IV SCH ×4 (02:45→20:00)
--- NOTE | 2022-04-05 06:12 | NUR ---
Problems reprioritized. Patient report given, questions answered & plan of care reviewed with AMOS Conklin.
--- NOTE | 2022-04-05 06:15 | NUR ---
Patient in room CICU 2013. I have received report from AMOS Packer and had the opportunity to ask questions and assume patient care.
[2022-04-05 06:56] LABS: MAGNESIUM 2.5 MG/DL (1.5-2.4)
[2022-04-05] MEDS: K and/or MAG REPLACEMENT MC SCH ×2 (06:57→20:00)
[2022-04-05] MEDS: lisinopril 10 MG tablet PO SCH (06:58)
[2022-04-05] MEDS: furosemide 20 MG/2 ML vial IV SCH ×2 (07:22→21:23)
[2022-04-05] MEDS: CefTRIAXone/D5W-Rocephin 1gm 50 ML IV SCH (07:23)
[2022-04-05] MEDS: levetiracetam 250mg tablet PO SCH ×2 (08:27→21:23)
[2022-04-05] MEDS: docusate sod 100mg capsule PO SCH ×2 (08:27→20:00)
[2022-04-05] MEDS: spironolactone 25 MG tablet PO SCH (08:28)
[2022-04-05] MEDS: famotidine 20mg tablet PO SCH ×2 (08:28→21:25)
[2022-04-05] MEDS: oxcarbazepine 150mg tablet PO SCH ×2 (08:31→21:23)
[2022-04-05] MEDS: azithromycin/NS 500mg/250ml 250 ML IV SCH (08:32)
[2022-04-05 10:31] LABS: ALANINE AMINOTRANSFERASE 456 U/L (12-78); ALBUMIN 3.1 G/DL (3.4-5.0); ALKALINE PHOSPHATASE 106 IU/L (46-116); ANION GAP 13 (8-16); ASPARTATE AMINO TRANSFERASE 213 U/L (10-37); BILIRUBIN,TOTAL 0.3 MG/DL (0.1-1.0); BLOOD UREA NITROGEN 12 MG/DL (7-18); BUN/CREATININE RATIO 14.8 (6.6-38.0); CHLORIDE 101 MMOL/L (99-107); CREATININE 0.81 MG/DL (0.40-0.90); GLUCOSE 83 MG/DL (70-104); POTASSIUM 3.4 MMOL/L (3.5-5.1); SODIUM 137 MMOL/L (135-145); TOTAL PROTEIN 6.3 G/DL (6.4-8.2); eGFR 84 ML/MIN
--- NOTE | 2022-04-05 11:25 | NUR ---
Went in to give the patient a dose of K-Dur, patient's mom refused for RN to wake the patient up at this time. Education was provided about what potassium does and why it is important to have normal values. Patient's mom stated an understanding but asked that we wait until lunch time to give it to her.
[2022-04-05] MEDS: potassium Cl 20 mEq SR tablet PO PRN ×2 (12:45→21:22)
--- NOTE | 2022-04-05 13:33 | NUR ---
Reminded Dad that pt has 2liter fluid restriction and he gave the pt a drink of water.
--- NOTE | 2022-04-05 14:53 | NUR ---
Problems reprioritized. Patient report given, questions answered & plan of care reviewed with AMOS Santiago on PCU, Patient will be going into room 3022 B.
--- NOTE | 2022-04-05 15:14 | NUR ---
Patient taken to room 3022 B via bed with primary RN and PCT. Patient tolerated well. All belongings left with patient.
[2022-04-05 16:40] LABS: HBSAG SCREEN Negative (Negative); HEP A AB, IGM Negative (Negative)
[2022-04-06] MEDS: potassium Cl 20 mEq SR tablet PO PRN (01:20)
[2022-04-06] MEDS: metoclopramide 5 mg/ml inj IV SCH ×2 (01:32→07:51)
[2022-04-06 02:00] VITALS: BP 139/82
--- NOTE | 2022-04-06 05:59 | NUR ---
Pt had watery BM's at beginning of shift, family educated to stop giving pt prune juice. Per , gave more juice after RN educated family. All other motility and stool softener Meds held. BM's stopped after 2200. Pt potassium 3.4. Replacement started. Family requesting third K DUR with morning medications as to not wake pt up.
[2022-04-06 06:00] VITALS: BP 145/103
--- NOTE | 2022-04-06 06:51 | NUR ---
Patient in room PCU 3022. I have received report from AMOS Hidalgo and had the opportunity to ask questions and assume patient care.
[2022-04-06 07:16] LABS: MAGNESIUM 2.4 MG/DL (1.5-2.4)
[2022-04-06] MEDS: furosemide 20 MG/2 ML vial IV SCH ×2 (07:51→20:12)
[2022-04-06] MEDS: CefTRIAXone/D5W-Rocephin 1gm 50 ML IV SCH (07:51)
[2022-04-06] MEDS: K and/or MAG REPLACEMENT MC SCH ×2 (07:51→20:00)
[2022-04-06] MEDS: spironolactone 25 MG tablet PO SCH (07:56)
[2022-04-06] MEDS: docusate sod 100mg capsule PO SCH ×2 (07:57→20:00)
[2022-04-06] MEDS: famotidine 20mg tablet PO SCH ×2 (07:58→20:13)
[2022-04-06] MEDS: levetiracetam 250mg tablet PO SCH ×2 (07:58→20:12)
[2022-04-06] MEDS ORDERED: LIDOcaine 1% 30ml preserv. free vial ONE (09:03)
[2022-04-06 09:42] LABS: BASOPHILS % (AUTO) 0.4 % (0-1); EOSINOPHILS % (AUTO) 0.5 % (0-6); HEMATOCRIT 29.6 % (35.0-45.0); HEMOGLOBIN 9.8 g/dl (12.0-16.0); LYMPHOCYTES # (AUTO) 2.6 X10'3 (1.1-4.8); LYMPHOCYTES % (AUTO) 26.7 % (21-51); MEAN CORPUSCULAR HEMOGLOBIN 31.8 PG (27.0-31.0); MEAN CORPUSCULAR HGB CONC 33.2 g/dL (33.0-36.5); MEAN CORPUSCULAR VOLUME 95.8 FL (78-98); MEAN PLATELET VOLUME 7.8 FL (7.4-10.4); MONOCYTES # (AUTO) 1.1 X10'3 (0-0.9); MONOCYTES % (AUTO) 10.8 % (2-12); NEUTROPHILS % (AUTO) 61.6 % (42-75); PLATELET COUNT 229 X10'3 (140-440); RED BLOOD COUNT 3.09 X10'6 (4.20-5.60); RED CELL DISTRIBUTION WIDTH 15.1 % (11.5-14.5); WHITE BLOOD COUNT 9.8 X10'3 (4.5-11.0)
[2022-04-06] MEDS: azithromycin/NS 500mg/250ml 250 ML IV SCH (09:47)
[2022-04-06] MEDS: oxcarbazepine 150mg tablet PO SCH ×2 (09:48→20:12)
[2022-04-06 10:02] LABS: ALANINE AMINOTRANSFERASE 467 U/L (12-78); ALBUMIN 3.3 G/DL (3.4-5.0); ALKALINE PHOSPHATASE 113 IU/L (46-116); ANION GAP 10 (8-16); BILIRUBIN,TOTAL 0.3 MG/DL (0.1-1.0); BLOOD UREA NITROGEN 11 MG/DL (7-18); BUN/CREATININE RATIO 15.1 (6.6-38.0); CALCIUM 8.3 MG/DL (8.5-10.1); CHLORIDE 100 MMOL/L (99-107); CREATININE 0.73 MG/DL (0.40-0.90); GLUCOSE 76 MG/DL (70-104); POTASSIUM 3.8 MMOL/L (3.5-5.1); SODIUM 135 MMOL/L (135-145); TOTAL CARBON DIOXIDE 25.4 MMOL/L (24-32); TOTAL PROTEIN 6.6 G/DL (6.4-8.2); eGFR > 90 ML/MIN
[2022-04-06 10:19] LABS: ASPARTATE AMINO TRANSFERASE 206 U/L (10-37)
[2022-04-06 11:00] VITALS: BP 120/86
[2022-04-06] MEDS ORDERED: metoprolol succinate 25mg (24-HOUR) SR. Tablet PO ONE (12:55)
--- NOTE | 2022-04-06 13:36 | NUR ---
PAGER ID: [phone] MESSAGE: [phone] RE: Ninoska Leyla room 3022A - Pt mother wanted me to let you know she is not on lisinopril.
[2022-04-06 15:00] VITALS: BP 131/79
[2022-04-06 18:00] VITALS: BP 134/92
--- NOTE | 2022-04-06 18:45 | NUR ---
Problems reprioritized. Patient report given, questions answered & plan of care reviewed with
[2022-04-06] MEDS ORDERED: carVEDilol 3.125mg tablet PO SCH (20:00)
[2022-04-06] MEDS ORDERED: metoprolol tartrate 12.5mg (1/2 tablet) PO SCH (20:00)
[2022-04-06] MEDS: carbamide peroxide 15ml bottle EACH EAR SCH (20:15)
[2022-04-06 22:00] VITALS: BP 137/87
[2022-04-07 02:00] VITALS: BP 127/67
--- NOTE | 2022-04-07 05:37 | NUR ---
Pt had 8 beats of V tach, sleeping, VSS. Md notified, order to check Mag and K and replace as needed.
[2022-04-07 06:00] VITALS: BP 116/60
--- NOTE | 2022-04-07 06:47 | NUR ---
Patient in room PCU 3022. I have received report from Gwen TRINIDAD and had the opportunity to ask questions and assume patient care.
--- NOTE | 2022-04-07 07:19 | NUR ---
Reassessment; Pt continues on Regular diet w/ low meal intake, mostly 0-25% though did have 50% of meals on 04/05. Not meeting needs. First BM 04/06 diarrhea per documentation, will hold the prune juices for now. Importance of adequate nutrition explained to pt's mother though she declined any further nutrition interventions at this time, will continue to monitor. Recs; 1. Continue Regular diet as tolerated 2. Routine bowel care 3. Weekly wts Addendum: 04/07/22 at [address] Amended: Links added.
[2022-04-07] MEDS: oxcarbazepine 150mg tablet PO SCH (08:00)
[2022-04-07] MEDS: K and/or MAG REPLACEMENT MC SCH (08:00)
[2022-04-07] MEDS: famotidine 20mg tablet PO SCH (08:00)
[2022-04-07] MEDS: metoprolol succinate 25mg (24-HOUR) SR. Tablet PO SCH ×2 (08:00→13:50)
[2022-04-07 08:02] LABS: BASOPHILS % (AUTO) 0.7 % (0-1); EOSINOPHILS # (AUTO) 0.1 X10'3 (0-0.9); EOSINOPHILS % (AUTO) 1.6 % (0-6); HEMOGLOBIN 10.6 g/dl (12.0-16.0); LYMPHOCYTES # (AUTO) 2.3 X10'3 (1.1-4.8); LYMPHOCYTES % (AUTO) 33.4 % (21-51); MEAN CORPUSCULAR HGB CONC 34.1 g/dL (33.0-36.5); MEAN PLATELET VOLUME 7.3 FL (7.4-10.4); MONOCYTES # (AUTO) 0.7 X10'3 (0-0.9); MONOCYTES % (AUTO) 10.7 % (2-12); NEUTROPHILS # (AUTO) 3.7 X10'3 (1.8-7.7); NEUTROPHILS % (AUTO) 53.6 % (42-75); PLATELET COUNT 231 X10'3 (140-440); RED CELL DISTRIBUTION WIDTH 15.2 % (11.5-14.5); WHITE BLOOD COUNT 6.8 X10'3 (4.5-11.0)
[2022-04-07 08:07] LABS: ALANINE AMINOTRANSFERASE 345 U/L (12-78); ALBUMIN 3.2 G/DL (3.4-5.0); ALBUMIN/GLOBULIN RATIO 0.9 (1.1-1.5); ALKALINE PHOSPHATASE 119 IU/L (46-116); ANION GAP 10 (8-16); ASPARTATE AMINO TRANSFERASE 93 U/L (10-37); BILIRUBIN,TOTAL 0.2 MG/DL (0.1-1.0); BLOOD UREA NITROGEN 13 MG/DL (7-18); BUN/CREATININE RATIO 18.3 (6.6-38.0); CALCIUM 8.5 MG/DL (8.5-10.1); CHLORIDE 100 MMOL/L (99-107); CREATININE 0.71 MG/DL (0.40-0.90); GLUCOSE 84 MG/DL (70-104); MAGNESIUM 2.2 MG/DL (1.5-2.4); POTASSIUM 3.7 MMOL/L (3.5-5.1); SODIUM 137 MMOL/L (135-145); TOTAL CARBON DIOXIDE 27.2 MMOL/L (24-32); TOTAL PROTEIN 6.7 G/DL (6.4-8.2); eGFR > 90 ML/MIN
[2022-04-07] MEDS: carbamide peroxide 15ml bottle EACH EAR SCH (09:43)
[2022-04-07 10:00] VITALS: BP 126/93
[2022-04-07] MEDS: spironolactone 25 MG tablet PO SCH ×2 (10:03→13:50)
[2022-04-07] MEDS: furosemide 20 MG/2 ML vial IV SCH (10:03)
[2022-04-07] MEDS: docusate sod 100mg capsule PO SCH (10:04)
[2022-04-07] MEDS: levetiracetam 250mg tablet PO SCH (10:04)
[2022-04-07] MEDS ORDERED: FAMO20TA8 PO (10:53)
[2022-04-07] MEDS ORDERED: ONDA4TAB12 PO (10:53)
[2022-04-07] MEDS ORDERED: SPIR25TA PO (10:53)
[2022-04-07] MEDS ORDERED: METO-395 PO (10:53)
--- NOTE | 2022-04-07 11:39 | NUR ---
PAGER ID: [phone] MESSAGE: [phone] [place] [id number] Pt. family member was wanting to know if it was okay for pt. to receive Toprol Xl, Aldactone, and Lasix prior to discharge since they were not given? Thank You
[2022-04-07 13:50] VITALS: BP 147/89
[2022-04-07 14:00] VITALS: BP 147/89
--- NOTE | 2022-04-07 14:20 | NUR ---
IV DC at 1400, cannula intact. Tele monitor DC 1400. Pt discharge with all personal belongings to home via private vehicle accompanied my family member. Pt. discharge instructions given to and reviewed with family member, verbalized understanding and had opportunity to ask questions.
== END 2022-04-07 14:33 | disposition home health service (06) | DRG 254 ==
LOC: ER 04:22 → ED HOLD 12:29 → PCU 3S 23:57 → SUR 3N 03-31 14:55 → CICU 2S 04-04 16:21 → PCU 3S 04-05 15:08
PROVIDERS: ADMIT Family Medicine; ATTEND Family Medicine
PROC: BW211ZZ Computerized Tomography (CT Scan) of Abdomen and Pelvis using Low Osmolar Contrast (ICD-10-PCS; principal; 2022-03-30)
DX: K31.84 Gastroparesis (principal); J96.01 Acute respiratory failure with hypoxia; I50.23 Acute on chronic systolic (congestive) heart failure; I42.9 Cardiomyopathy, unspecified; J18.9 Pneumonia, unspecified organism; E87.1 Hypo-osmolality and hyponatremia; I95.9 Hypotension, unspecified; E83.39 Other disorders of phosphorus metabolism; R16.0 Hepatomegaly, not elsewhere classified; E04.1 Nontoxic single thyroid nodule; D64.9 Anemia, unspecified; K59.00 Constipation, unspecified; G47.33 Obstructive sleep apnea (adult) (pediatric); I11.0 Hypertensive heart disease with heart failure; G40.909 Epilepsy, unspecified, not intractable, without status epilepticus; T46.4X5A Adverse effect of angiotensin-converting-enzyme inhibitors, initial encounter; Y92.230 Patient room in hospital as the place of occurrence of the external cause; T78.3XXA Angioneurotic edema, initial encounter; Z20.822 Contact with and (suspected) exposure to COVID-19; G47.30 Sleep apnea, unspecified; J98.11 Atelectasis; E87.6 Hypokalemia; R14.0 Abdominal distension (gaseous); R74.01 Elevation of levels of liver transaminase levels; R79.89 Other specified abnormal findings of blood chemistry; Z79.899 Other long term (current) drug therapy; Z88.5 Allergy status to narcotic agent
CPT/HCPCS: 36415; 71045; 71250; 74176; 74177; 76700; 76856; 80053; 80074; 81001; 81025; 82948; 83605; 83690; 83735; 83880; 84100; 84132; 84145; 84443; 84484; 85025; 87040; 87081; 87502; 87503; 87811; 92508; 92616; 93005; 93306; 94760; 96374; 96375; 99285; A4615; A6213; G0378; J0456; J0500; J0696; J1250; J1885; J1940; J2270; J2405; J2765; J3490; J7030; Q9963; Q9967

== ENCOUNTER 2022-04-09 01:05 | Emergency (ER) | payer MEDICAID ==
[~2022-04-09] VITALS: Ht 152.4 cm; Wt 62.0 kg
[~2022-04-09 01:05] MED LIST: CALC-157 PO; CHOL400T PO; FAMO20TA8 PO; LEVE500T PO; METO-395 PO; ONDA4TAB12 PO; OXCA150T14 PO; OXCA600T9 PO; POLY17PO59 PO; SPIR25TA PO
[2022-04-09 01:17] VITALS: BP 153/104
[2022-04-10] MEDS ORDERED: LEVE10002 PO (08:49)
== END 2022-04-09 10:18 | disposition home or self-care (01) ==
LOC: ER 01:06
DX: R10.9 Unspecified abdominal pain (principal); I50.9 Heart failure, unspecified
CPT/HCPCS: 76700; 99284

== ENCOUNTER 2022-04-09 23:07 | Inpatient (IN) | payer MEDICAID ==
[~2022-04-09] VITALS: Ht 152.4 cm; Wt 59.1 kg
[2022-04-09] MEDS ORDERED: furosemide 10 MG/1 ML 10ml inj IV ONE (23:40)
[2022-04-10 00:18] LABS: BASOPHILS # (AUTO) 0.1 X10'3 (0-0.2); BASOPHILS % (AUTO) 0.8 % (0-1); EOSINOPHILS # (AUTO) 0.1 X10'3 (0-0.9); EOSINOPHILS % (AUTO) 0.7 % (0-6); HEMATOCRIT 32.5 % (35.0-45.0); HEMOGLOBIN 11.2 g/dl (12.0-16.0); MEAN CORPUSCULAR HEMOGLOBIN 32.2 PG (27.0-31.0); MEAN CORPUSCULAR HGB CONC 34.3 g/dL (33.0-36.5); MEAN CORPUSCULAR VOLUME 93.9 FL (78-98); MONOCYTES # (AUTO) 0.5 X10'3 (0-0.9); MONOCYTES % (AUTO) 5.9 % (2-12); NEUTROPHILS # (AUTO) 5.8 X10'3 (1.8-7.7); NEUTROPHILS % (AUTO) 68.6 % (42-75); PLATELET COUNT 295 X10'3 (140-440); RED BLOOD COUNT 3.47 X10'6 (4.20-5.60); RED CELL DISTRIBUTION WIDTH 15.1 % (11.5-14.5); WHITE BLOOD COUNT 8.5 X10'3 (4.5-11.0)
[2022-04-10 00:31] LABS: ALANINE AMINOTRANSFERASE 246 U/L (12-78); ALBUMIN 3.4 G/DL (3.4-5.0); ALBUMIN/GLOBULIN RATIO 0.8 (1.1-1.5); ALKALINE PHOSPHATASE 128 IU/L (46-116); ANION GAP 9 (8-16); ASPARTATE AMINO TRANSFERASE 60 U/L (10-37); BILIRUBIN,TOTAL 0.2 MG/DL (0.1-1.0); BLOOD UREA NITROGEN 17 MG/DL (7-18); CALCIUM 9.1 MG/DL (8.5-10.1); CHLORIDE 99 MMOL/L (99-107); CREATININE 0.74 MG/DL (0.40-0.90); GLUCOSE 113 MG/DL (70-104); POTASSIUM 4.4 MMOL/L (3.5-5.1); SODIUM 133 MMOL/L (135-145); TOTAL CARBON DIOXIDE 24.6 MMOL/L (24-32); TOTAL PROTEIN 7.5 G/DL (6.4-8.2); eGFR > 90 ML/MIN
[2022-04-10] MEDS ORDERED: ondansetron/PF 4mg/2ml inj IV ONE (00:35)
[2022-04-10] MEDS ORDERED: morphine 4 MG/ML inj SYRINge IV ONE (00:35)
[2022-04-10 00:38] LABS: LIPASE 906 U/L (73-393)
[2022-04-10 01:40] LABS: CLARITY,URINE CLEAR (Clear); COLOR,URINE YELLOW (Yellow); GLUCOSE, URINE NEGATIVE (Neg); KETONES,URINE NEGATIVE (Neg); LEUKOCYTE ESTERASE ,URINE NEGATIVE (Neg); NITRITES, URINE NEGATIVE (Neg); OCCULT BLOOD,URINE TRACE-INTACT (Neg); PROTEIN,URINE NEGATIVE (Neg); UROBILINOGEN,URINE 0.2 E.U/dL (0.2-1.0)
[2022-04-10 01:46] LABS: UA COLLECTION TYPE CLN CATCH MIDSTREAM
[2022-04-10 01:49] LABS: BACTERIA,URINE FEW /HPF (Neg); RBC,URINE 0-2 /HPF (0-2); SQUAMOUS EPITHELIAL CELL,UR FEW /LPF (FEW); WBC,URINE 0-4 /HPF (0-4)
[2022-04-10] MEDS ORDERED: potassium Cl 20 mEq SR tablet PO PRN ×2 (02:25)
[2022-04-10] MEDS ORDERED: potassium Cl 40MEQ/1/2NS 520ml 520 ML IV PRN (02:25)
[2022-04-10] MEDS ORDERED: acetaminophen 325mg tablet PO PRN (02:25)
[2022-04-10] MEDS ORDERED: magnesium hydroxide 30ml (MOM) UD suspension PO PRN (02:25)
[2022-04-10] MEDS ORDERED: mag hydrox/Alum hydrox/simeth 30ml oral suspension PO PRN (02:25)
[2022-04-10] MEDS ORDERED: magnesium 4gm in 100ml NS 100 ML IV PRN (02:25)
[2022-04-10] MEDS ORDERED: ondansetron/PF 4mg/2ml inj IV PRN (02:25)
--- NOTE | 2022-04-10 07:15 | NUR ---
R Addendum: 04/10/22 at 0738 by Sydnie Gaffney RN RECEIVED REPORT FROM MARTY IN ER.
[2022-04-10] MEDS ORDERED: levetiracetam 250mg tablet PO SCH (08:00)
[2022-04-10] MEDS: docusate sod 100mg capsule PO SCH ×2 (08:00→19:09)
[2022-04-10] MEDS: metoprolol succinate 25mg (24-HOUR) SR. Tablet PO SCH (08:09)
[2022-04-10] MEDS: spironolactone 25 MG tablet PO SCH (08:21)
--- NOTE | 2022-04-10 08:21 | NUR ---
PAGER ID: [phone] MESSAGE: [id number] TJ RAMIREZ PATIENT TAKES 1000MG KEPPRA QAM, AND PHARMACY GAVE 500MG WHICH WAS GIVEN CAN I GET THE OTHER DOSE AND THEM HAVE THE ORDER CHANGED. HOMA [id number]
[2022-04-10] MEDS: oxcarbazepine 150mg tablet PO SCH (08:22)
[2022-04-10] MEDS: furosemide 20 MG/2 ML vial IV SCH ×2 (08:22→19:09)
[2022-04-10] MEDS: sacubitril/valsartan 24mg-26mg tablet PO SCH ×3 (08:23→19:10)
[2022-04-10 08:24] VITALS: BP 158/97
[2022-04-10] MEDS: K and/or MAG REPLACEMENT MC SCH ×2 (08:33→20:00)
[2022-04-10] MEDS ORDERED: levetiracetam 250mg tablet PO ONE ×2 (08:45→20:00)
[2022-04-10] MEDS ORDERED: LEVE10002 PO (08:49)
[2022-04-10 10:00] VITALS: BP 128/72
[2022-04-10] MEDS ORDERED: oxyCODONE IR 5mg (immed. release) tablet PO PRN (12:20)
--- NOTE | 2022-04-10 13:38 | NUR ---
family takes patient to bathroom Addendum: 04/10/22 at 1344 by Sydnie Gaffney RN Amended: Links added.
[2022-04-10 18:00] VITALS: BP 105/70
--- NOTE | 2022-04-10 18:19 | NUR ---
Problems reprioritized. Patient report given, questions answered & plan of care reviewed with Gwen TRINIDAD.
[2022-04-10] MEDS: levetiracetam 250mg tablet PO SCH (19:09)
[2022-04-10] MEDS: famotidine 20mg tablet PO SCH (19:10)
[2022-04-10] MEDS ORDERED: enoxaparin 40mg/0.4ml syringe SQ SCH (20:00)
[2022-04-10] MEDS ORDERED: non-formulary drug (Levetiracetam 500 MG) PO SCH (20:00)
[2022-04-10] MEDS ORDERED: oxcarbazepine 150mg tablet PO SCH (21:00)
[2022-04-10] MEDS ORDERED: OXCARBAZEPINE 600 MG PO SCH (21:00)
[2022-04-10] MEDS ORDERED: psyllium seed 3.4 gm packet PO SCH (21:00)
[2022-04-10 22:00] VITALS: BP 138/67
[2022-04-11 07:14] LABS: BASOPHILS # (AUTO) 0.1 X10'3 (0-0.2); BASOPHILS % (AUTO) 0.8 % (0-1); EOSINOPHILS # (AUTO) 0.1 X10'3 (0-0.9); EOSINOPHILS % (AUTO) 1.8 % (0-6); HEMATOCRIT 40.6 % (35.0-45.0); HEMOGLOBIN 13.4 g/dl (12.0-16.0); LYMPHOCYTES # (AUTO) 2.2 X10'3 (1.1-4.8); LYMPHOCYTES % (AUTO) 30.4 % (21-51); MEAN CORPUSCULAR HEMOGLOBIN 31.3 PG (27.0-31.0); MEAN CORPUSCULAR HGB CONC 33.1 g/dL (33.0-36.5); MEAN CORPUSCULAR VOLUME 94.4 FL (78-98); MEAN PLATELET VOLUME 7.1 FL (7.4-10.4); MONOCYTES # (AUTO) 0.9 X10'3 (0-0.9); NEUTROPHILS # (AUTO) 3.8 X10'3 (1.8-7.7); PLATELET COUNT 351 X10'3 (140-440); RED CELL DISTRIBUTION WIDTH 15.4 % (11.5-14.5); WHITE BLOOD COUNT 7.1 X10'3 (4.5-11.0)
[2022-04-11 07:33] LABS: ALANINE AMINOTRANSFERASE 180 U/L (12-78); ALBUMIN 3.6 G/DL (3.4-5.0); ALBUMIN/GLOBULIN RATIO 0.8 (1.1-1.5); ALKALINE PHOSPHATASE 128 IU/L (46-116); ANION GAP 9 (8-16); ASPARTATE AMINO TRANSFERASE 41 U/L (10-37); BILIRUBIN,TOTAL 0.3 MG/DL (0.1-1.0); BLOOD UREA NITROGEN 17 MG/DL (7-18); CALCIUM 9.2 MG/DL (8.5-10.1); CHLORIDE 101 MMOL/L (99-107); CREATININE 0.85 MG/DL (0.40-0.90); GLUCOSE 85 MG/DL (70-104); LIPASE 900 U/L (73-393); MAGNESIUM 2.5 MG/DL (1.5-2.4); SODIUM 136 MMOL/L (135-145); TOTAL PROTEIN 7.9 G/DL (6.4-8.2); eGFR 79 ML/MIN
[2022-04-11] MEDS ORDERED: spironolactone 25 MG tablet PO SCH (08:00)
[2022-04-11] MEDS ORDERED: metoprolol succinate 25mg (24-HOUR) SR. Tablet PO SCH (08:00)
[2022-04-11] MEDS ORDERED: polyethylene glycol 3350 17gm powd pack PO SCH (08:00)
[2022-04-11] MEDS ORDERED: oxcarbazepine 150mg tablet PO SCH (08:00)
[2022-04-11] MEDS ORDERED: levetiracetam 250mg tablet PO SCH (08:00)
[2022-04-11] MEDS: K and/or MAG REPLACEMENT MC SCH (08:00)
[2022-04-11] MEDS ORDERED: calcium carbonate 500mg tablet PO SCH (08:00)
[2022-04-11] MEDS ORDERED: OXYC-658 PO (08:46)
[2022-04-11] MEDS ORDERED: SACU1TAB PO (08:46)
[2022-04-11] MEDS ORDERED: FURO-150 PO (08:46)
[2022-04-11 09:34] VITALS: BP 96/68
[2022-04-11] MEDS: metoprolol succinate 25mg (24-HOUR) SR. Tablet PO SCH (09:38)
[2022-04-11] MEDS: levetiracetam 250mg tablet PO SCH (09:38)
[2022-04-11] MEDS: docusate sod 100mg capsule PO SCH (09:39)
[2022-04-11] MEDS: famotidine 20mg tablet PO SCH (09:40)
[2022-04-11] MEDS: oxcarbazepine 150mg tablet PO SCH (09:41)
[2022-04-11] MEDS: furosemide 20 MG/2 ML vial IV SCH (09:43)
[2022-04-11] MEDS: sacubitril/valsartan 24mg-26mg tablet PO SCH (09:55)
[2022-04-11] MEDS: spironolactone 25 MG tablet PO SCH (09:55)
[2022-04-11 09:56] VITALS: BP 120/67
--- NOTE | 2022-04-11 11:04 | NUR ---
Patient is develop mentally delayed, and parent are with her 19/12 all belongings come and go with them. Addendum: 04/11/22 at 1105 by Sydnie Gaffney RN Amended: Links added.
--- NOTE | 2022-04-11 12:35 | NUR ---
Spoke with Director Of Food And Beverage Services, Entresto is being verified through insurance.
--- NOTE | 2022-04-11 12:47 | NUR ---
PAGER ID: [phone] MESSAGE: [phone] Ninoska Mayer I am wondering if you can send a referral to [facility] for [place] PCP or a referral to Dr. Estrada. Jud [phone]
== END 2022-04-11 12:52 | disposition home health service (06) | DRG 282 ==
LOC: ER 23:07 → CANBEDREQ 04-10 00:08 → ED HOLD 04-10 02:27 → PCU 3S 04-10 07:27
PROVIDERS: ADMIT Family Medicine; ATTEND Internal Medicine
DX: K85.90 Acute pancreatitis without necrosis or infection, unspecified (principal); I50.23 Acute on chronic systolic (congestive) heart failure; K31.84 Gastroparesis; K80.20 Calculus of gallbladder without cholecystitis without obstruction; R74.01 Elevation of levels of liver transaminase levels; E87.1 Hypo-osmolality and hyponatremia; G47.30 Sleep apnea, unspecified; G40.909 Epilepsy, unspecified, not intractable, without status epilepticus; R09.02 Hypoxemia; Z79.899 Other long term (current) drug therapy; Z82.49 Family history of ischemic heart disease and other diseases of the circulatory system; Z88.8 Allergy status to other drugs, medicaments and biological substances
CPT/HCPCS: 36415; 71045; 80053; 81001; 83690; 83735; 83880; 85025; 85610; 99285; G0378; J1650; J1940; J2270; J2405

== ENCOUNTER 2022-04-14 12:34 | Emergency (ER) | payer MEDICAID ==
[~2022-04-14] VITALS: Ht 152.4 cm; Wt 60.9 kg
[~2022-04-14 12:34] MED LIST changes: +FURO-150 PO; +LEVE10002 PO; -LEVE500T PO; +OXYC-658 PO; +SACU1TAB PO
[2022-04-14 14:29] LABS: BASOPHILS % (AUTO) 0.1 % (0-1); EOSINOPHILS # (AUTO) 0.1 X10'3 (0-0.9); EOSINOPHILS % (AUTO) 0.9 % (0-6); HEMATOCRIT 43.4 % (35.0-45.0); HEMOGLOBIN 14.5 g/dl (12.0-16.0); LYMPHOCYTES # (AUTO) 2.3 X10'3 (1.1-4.8); LYMPHOCYTES % (AUTO) 15.1 % (21-51); MEAN CORPUSCULAR HEMOGLOBIN 31.8 PG (27.0-31.0); MEAN CORPUSCULAR HGB CONC 33.5 g/dL (33.0-36.5); MEAN CORPUSCULAR VOLUME 94.9 FL (78-98); MONOCYTES # (AUTO) 1.3 X10'3 (0-0.9); MONOCYTES % (AUTO) 8.3 % (2-12); NEUTROPHILS # (AUTO) 11.4 X10'3 (1.8-7.7); NEUTROPHILS % (AUTO) 75.6 % (42-75); PLATELET COUNT 431 X10'3 (140-440); RED BLOOD COUNT 4.57 X10'6 (4.20-5.60); RED CELL DISTRIBUTION WIDTH 15.6 % (11.5-14.5); WHITE BLOOD COUNT 15.1 X10'3 (4.5-11.0)
[2022-04-14 14:34] LABS: ALANINE AMINOTRANSFERASE 102 U/L (12-78); ALBUMIN 3.8 G/DL (3.4-5.0); ALBUMIN/GLOBULIN RATIO 0.9 (1.1-1.5); ALKALINE PHOSPHATASE 109 IU/L (46-116); ANION GAP 4 (8-16); ASPARTATE AMINO TRANSFERASE 41 U/L (10-37); BILIRUBIN,TOTAL 0.2 MG/DL (0.1-1.0); BLOOD UREA NITROGEN 19 MG/DL (7-18); CALCIUM 9.2 MG/DL (8.5-10.1); CHLORIDE 95 MMOL/L (99-107); CREATININE 0.73 MG/DL (0.40-0.90); GLUCOSE 82 MG/DL (70-104); POTASSIUM 4.8 MMOL/L (3.5-5.1); SODIUM 127 MMOL/L (135-145); TOTAL CARBON DIOXIDE 27.7 MMOL/L (24-32); eGFR > 90 ML/MIN
--- NOTE | 2022-04-14 19:29 | NUR ---
PT GUARDIANS WANTED PT IV TAKEN OUT TO LEAVE AMA, PROVIDER IS [place], REFUSED TO SIGN AMA FORM. THEY ARE FRUSTRATED ABOUT THE WAIT TO RECEIVE ANSWERS ABOUT PT PLAN OF CARE.
[2022-04-14 19:32] VITALS: BP 134/84
== END 2022-04-14 19:33 | disposition left against medical advice (07) ==
LOC: ER 12:34
DX: I50.9 Heart failure, unspecified (principal); Z88.8 Allergy status to other drugs, medicaments and biological substances
CPT/HCPCS: 36415; 71045; 80053; 83880; 84484; 85025; 93005; 99285